=== PATIENT | female | born 1950 | race Caucasian/White ===

== ENCOUNTER → 2016-06-28 | Outpatient (CLI) | payer OTHER | LOC: BMCIMAGING 14:39 | PROVIDERS: ATTEND Internal Medicine Rheumatology | DX: M85.80 Other specified disorders of bone density and structure, unspecified site (principal) ==

== ENCOUNTER → 2017-01-21 | Outpatient (CLI) | payer OTHER | LOC: BRMIMAGING 13:55 | PROVIDERS: ATTEND Internal Medicine Hematology & Oncology | DX: Z12.31 Encounter for screening mammogram for malignant neoplasm of breast (principal); Z85.3 Personal history of malignant neoplasm of breast | CPT/HCPCS: G0202 ==

== ENCOUNTER → 2017-06-01 | Outpatient (CLI) | payer OTHER | LOC: FIMAGING 09:48 | PROVIDERS: ATTEND Physical Medicine & Rehabilitation | DX: E21.3 Hyperparathyroidism, unspecified (principal); E04.1 Nontoxic single thyroid nodule ==

== ENCOUNTER 2018-02-10 08:00 | Inpatient (IN) | payer OTHER ==
[2018-05-17] MEDS ORDERED: ROPIVACAINE 0.2% 80 MG, EPINEPHrine 0.2 MG, KETOROLAC TROMETHAMINE 30 MG in SYRINGE 0 ML IU ONE (06:00)
[2018-05-17] MEDS ORDERED: TRANEXAMIC ACID 3,000 MG in NS (SYRINGE) 50 ML IRR ONE (06:00)
--- NOTE | 2018-05-17 07:05 | PDHPUP ---
History & Physical Update H&P update statement: This history and physical update is based on an assessment of the patient which was completed after admission or registration (within 24 hours), but prior to the surgery/procedure. H&P update: H&P reviewed & patient examined, no change in patient's condition since H&P completed
[2018-05-17] MEDS ORDERED: TRANEXAMIC ACID 3,000 MG/50 ML BAG IRR ONE (07:32)
[2018-05-17] MEDS ORDERED: ceFAZolin 2 GM/DEXTROSE 100 ML IV ONE (08:17)
[2018-05-17] MEDS ORDERED: DEXAMETHASONE 4 MG/ML VIAL IVP ONE (08:17)
[2018-05-17] MEDS ORDERED: LR 1,000 ML IV ONE (08:17)
[2018-05-17] MEDS ORDERED: ACETAMINOPHEN 325 MG TAB PO ONE (08:17)
[2018-05-17] MEDS ORDERED: FAMOTIDINE 20 MG TAB PO ONE (08:17)
[2018-05-17] MEDS ORDERED: MIDAZOLAM 2 MG/2 ML VIAL IVP ONE (08:22)
--- NOTE | 2018-05-17 08:22 | PDANEPAE ---
ANE History of Present Illness hip DJD, chronic OA, here for LTHA ANE Past Medical History - Cardiovascular History Hx Hypertension: No Hx Arrhythmias: No Hx Chest Pain: No Hx Coronary Artery / Peripheral Vascular Disease: No Hx CHF / Valvular Disease: No Hx Palpitations: No - Pulmonary History Hx COPD: No Hx Asthma/Reactive Airway Disease: Yes Hx Recent Upper Respiratory Infection: No Hx Oxygen in Use at Home: No Hx Sleep Apnea: No Sleep Apnea Screening Result - Last Documented: Negative Pulmonary History Comment: ASTHMA. SARCOIDOSIS WITH GRANULOMAS IN REMISSION - Neurologic History Hx Cerebrovascular Accident: No Hx Seizures: No Hx Dementia: No - Endocrine History Hx Diabetes: No - Renal History Hx Renal Disorders: No - Liver History Hx Hepatic Disorders: No - Neurological & Psychiatric Hx Hx Neurological and Psychiatric Disorders: No - Cancer History Hx Cancer: Yes Cancer History Comment: BREAST CANCER - Congenital Disorder History Hx Congenital Disorders: No - GI History Hx Gastrointestinal Disorders: Yes Gastrointestinal History Comment: ACID REFLUX - Other Health History Other Health History: ALLERGIC RHINITIS - Chronic Pain History Chronic Pain: Yes (LOWER BACK,LEFT KNEE) - Surgical History Prior Surgeries: ABD SURGERY X2. SHOULDER SX 2018 ANE Review of Systems Review of Systems: - Exercise capacity METS (RN): 4 METS ANE Patient History - Allergies Allergies/Adverse Reactions: morphine Allergy (Verified 05/01/18 11:21) Itching - Home Medications Home Medications: Azelastine [Astelin Nasal [place] (RX)] 1 sprays EACHNARE BID PRN 05/01/18 [Last Taken Unknown] Cholecalciferol Vit D3 [Vitamin D3 (*)] 5,000 units PO DAILY 05/01/18 [Last Taken Unknown] Dicyclomine [Bentyl 20 MG (*)] 20 mg PO TID 05/01/18 [Last Taken Unknown] Diphenoxylate HCl/Atrop Sulf [Lomotil Tab (*)] 1 tab PO DAILY PRN 05/01/18 [ Last Taken Unknown] Ferrous Sulfate [Ferrous Sulf 325 MG (*)] 325 mg PO DAILY 05/01/18 [Last Taken Unknown] Herbals/Supplements -Info Only 1 ea PO DAILY 05/01/18 [Last Taken Unknown] Levalbuterol Inhaler [Xopenex Hfa Inhaler (*)] 1 puffs IH TID 05/01/18 [Last Taken Unknown] Memantine HCl 10 mg PO BID 05/01/18 [Last Taken Unknown] Mesalamine [Asacol HD 800 mg] 800 mg PO TID 05/01/18 [Last Taken Unknown] Mometasone Furoate Nasal [Nasonex] 1 sprays NASAL DAILY PRN 05/01/18 [Last Taken Unknown] Omeprazole 40 mg PO DAILY 05/01/18 [Last Taken Unknown] Tiotropium Inhaler [Spiriva Inhaler] 1 inh IH DAILY 05/01/18 [Last Taken Unknown ] traMADol [Ultram 50 mg (*)] 100 mg PO TID 05/01/18 [Last Taken Unknown] - Smoking Hx Smoking Status: Former smoker - Family Anes Hx Family Hx Anesthesia Complications: NONE ANE Labs/Vital Signs - Vital Signs Height: 167.64 cm Weight: 58.06 kg ANE Physical Exam - Airway Neck exam: FROM Mallampati Score: Class 2 Mouth exam: normal dental/mouth exam - Pulmonary Pulmonary: no respiratory distress, no rales or rhonchi - Cardiovascular Cardiovascular: regular rate and rhythym, no murmur, rub, or gallop - ASA Status ASA Status: III ANE Anesthesia Plan Anesthesia Plan: GA with mask, spinal Total IV Anesthesia: Yes
[2018-05-17] MEDS ORDERED: LIDOCAINE 1% 2 ML INJ ONE (08:25)
[2018-05-17] MEDS ORDERED: fentaNYL 100 MCG/2 ML INJ ONE (08:27)
[2018-05-17] MEDS ORDERED: ONDANSETRON 4 MG/2 ML VIAL ONE (08:27)
[2018-05-17] MEDS ORDERED: LIDOCAINE 2% 100 MG/5 ML SYR ONE (08:27)
[2018-05-17] MEDS ORDERED: BUPIVACAINE/DEXTROSE 7.5MG/ML 2 ML SPINAL AMP SP ONE (08:27)
[2018-05-17] MEDS ORDERED: PHENYLEPHRINE HCL 100 MCG/ML SYR ONE (08:27)
[2018-05-17] MEDS ORDERED: LIDOCAINE 1% 2 ML INJ ID PRN (08:28)
[2018-05-17] MEDS ORDERED: BUPIVACAINE 0.5% 30 ML SDV ONE (09:02)
[2018-05-17] MEDS ORDERED: PROPOFOL 200 MG/20 ML VIAL ONE (10:06)
[2018-05-17] MEDS ORDERED: NALOXONE HCL 0.4 MG/ML INJ IVP PRN (10:31)
[2018-05-17] MEDS ORDERED: fentaNYL 100 MCG/2 ML INJ IVP PRN (10:31)
[2018-05-17] MEDS ORDERED: DIAZEPAM 5 MG/ML 1 ML SYR IVP PRN (10:31)
[2018-05-17] MEDS ORDERED: PROMETHAZINE HCL 25 MG/ML INJ IVP PRN ×2 (10:31→10:37)
[2018-05-17] MEDS ORDERED: MEPERIDINE 25 MG/0.5 ML AMP IVP PRN (10:31)
[2018-05-17] MEDS ORDERED: LR 500 ML IV PRN (10:31)
[2018-05-17] MEDS ORDERED: oxyCODONE IR 5 MG TAB PO PRN ×2 (10:31→10:37)
[2018-05-17] MEDS ORDERED: HYDROmorphONE/DILAUDID 2 MG/ML INJ IVP PRN (10:31)
[2018-05-17] MEDS ORDERED: ACETAMINOPHEN 500 MG TAB PO PRN (10:31)
[2018-05-17] MEDS ORDERED: ONDANSETRON 4 MG/2 ML VIAL IVP PRN ×2 (10:31→10:37)
[2018-05-17] MEDS ORDERED: PROMETHAZINE HCL 25 MG SUPPR PR PRN (10:37)
[2018-05-17] MEDS ORDERED: POLYETHYLENE GLYCOL 3350 17 GM PKT PO PRN (10:37)
[2018-05-17] MEDS ORDERED: DIPHENOXYLATE/ATROPINE LOMOTIL 1 TAB PO PRN (10:37)
[2018-05-17] MEDS ORDERED: MAGNESIUM HYDROXIDE 30 ML UDCUP PO PRN (10:37)
[2018-05-17] MEDS ORDERED: METOCLOPRAMIDE 10 MG/2 ML VIAL IVP PRN (10:37)
[2018-05-17] MEDS ORDERED: ONDANSETRON DISINTEGRATING 4 MG TAB PO PRN (10:37)
[2018-05-17] MEDS ORDERED: CYCLOBENZAPRINE 10 MG TAB PO PRN (10:37)
[2018-05-17] MEDS ORDERED: diphenhydrAMINE 25 MG CAP PO PRN (10:37)
[2018-05-17] MEDS ORDERED: TEMAZEPAM 15 MG CAP PO PRN (10:37)
[2018-05-17] MEDS ORDERED: LACTULOSE 20 GM/30 ML UDCUP PO PRN (10:37)
[2018-05-17] MEDS ORDERED: BISACODYL 10 MG SUPP PR PRN (10:37)
--- NOTE | 2018-05-17 10:37 | POSTOPPROG ---
Post Op Note Date of Operation: 05/17/18 Surgeon: Kenia Pitts Felt Hat Pouncing Operator Hand: zulma pitts PA-C and Montse Mendiola PA-C Anesthesiologist: dr. ferreira Anesthesia: Spinal Pre-op Diagnosis: left hip OA Post-op Diagnosis: same Indication: left hip pain Procedure: L JESSICA ant approach Findings: severe hip OA Inf/Abcess present in the surg proc area at time of surgery?: No EBL: 100-500
[2018-05-17] MEDS ORDERED: MOMETASONE FUROATE NASAL PRN (10:40)
--- NOTE | 2018-05-17 10:43 | POSTANESTH ---
Post Anesthetic Evaluation Cardiovascular Status: Normal, Stable Respiratory Status: Normal, Stable Level of Consciousness/Mental Status: Can Participate in Eval, Alert and Oriented Pain Control: Adequate, Prn Tx Ordered Nausea/Vomiting Control: Adequate, Prn Tx Ordered Complications Possibly Related to Anesthesia: None Noted (moving both legs on exam)
[2018-05-17] MEDS ORDERED: LR 1,000 ML IV SCH (11:00)
[2018-05-17] MEDS ORDERED: oxyCODONE IR 5 MG TAB ONE ×2 (14:50→16:00)
[2018-05-17] MEDS ORDERED: ACETAMINOPHEN 325 MG TAB ONE (14:51)
[2018-05-17] MEDS: ACETAMINOPHEN 325 MG TAB PO SCH ×2 (14:53→22:44)
[2018-05-17] MEDS ORDERED: AZELASTINE NASAL MDI EACHNARE PRN (17:00)
[2018-05-17] MEDS ORDERED: WARFARIN SODIUM 5 MG TAB PO SCH (17:00)
[2018-05-17] MEDS: traMADol 50 MG TAB PO SCH ×2 (18:05→22:44)
[2018-05-17] MEDS: ceFAZolin 2 GM/DEXTROSE 100 ML IV SCH (18:15)
[2018-05-17] MEDS: SENNOSIDES/DOCUSATE SODIUM TAB PO SCH (20:18)
[2018-05-17] MEDS: oxyCODONE IR 5 MG TAB PO PRN (20:18)
--- NOTE | 2018-05-17 22:07 | PDMN ---
Medical Necessity Medical necessity: Pt meets inpt criteria per MD order and [facility] S-560, Hip Arthroplasty, A-2 days, IP only list. 67 y/o w/L hip OA admitted for L JESSICA ant approach and post-op care.
[2018-05-17] MEDS: DICYCLOMINE 20 MG TAB PO SCH (22:44)
[2018-05-18] MEDS: DICYCLOMINE 20 MG TAB PO SCH (01:14)
[2018-05-18] MEDS: ceFAZolin 2 GM/DEXTROSE 100 ML IV SCH (01:22)
[2018-05-18] MEDS: ACETAMINOPHEN 325 MG TAB PO SCH ×2 (05:03→12:25)
[2018-05-18] MEDS: LEVALBUTEROL INHALER 200 PUFFS/15 GM MDI IH SCH ×2 (05:35→10:04)
[2018-05-18 05:59] LABS: INR 1.14 (0.83-1.16); PROTIME(PATIENT) 14.1 SEC (12.0-15.0)
[2018-05-18] MEDS: traMADol 50 MG TAB PO SCH (08:51)
[2018-05-18] MEDS ORDERED: TIOTROPIUM INHALER 18 MCG/DOSE 5 DOSE/MDI IH SCH (09:00)
[2018-05-18] MEDS ORDERED: FERROUS SULFATE 325 MG TAB PO SCH (09:00)
[2018-05-18] MEDS ORDERED: FAMOTIDINE 20 MG TAB PO SCH (09:00)
[2018-05-18] MEDS ORDERED: ENOXAPARIN 40 MG/0.4 ML SYR SC SCH (09:00)
[2018-05-18] MEDS: SENNOSIDES/DOCUSATE SODIUM TAB PO SCH (09:15)
--- NOTE | 2018-05-18 09:48 | SOAPPROG ---
SOAP Progress Note Assessment/Plan: Assessment: Patient is doing well POD 1 s/p L JESSICA Pain management: pain is well controlled on oral pain meds. VTE ppx: recommend coumadin and lovenox due to history of DVT, INR 1.14. cont WILLIS and SCDs Anemia: level is expected initially postop. Asymptomatic. Continue to monitor D/c planning: Patient has done better than anticipated and would like to be discharged to home today. Patient must be released from PT before discharge to home. Plan: 05/18/18 09:47 Subjective: patient is doing well today, denies SOb ,chest pain and N/V Objective: Vital Signs Temp Pulse Resp BP Pulse Ox 36.4 C 82 14 121/86 H 96 05/18/18 07:37 05/18/18 07:37 05/18/18 07:37 05/18/18 07:37 05/18/18 07:37 Laboratory Results 05/18/18 04:53 05/17/18 05/18/18 05/19/18 05:59 05:59 05:59 Intake Total 1535 Output Total 800 Balance 735 PT 14.1 SEC (12.0-15.0) 05/18/18 04:53 INR 1.14 (0.83-1.16) 05/18/18 04:53 LLE: incision dressing is clean and dry, NVI, +pf/df ICD10 Worksheet Patient Problems: Problems Problem Status Onset Primary localized osteoarthritis of left hip Acute
--- NOTE | 2018-05-18 10:03 | ASMTLACE ---
LACE Length of stay for Answers: 2 days current admission Comorbidities - select Answers: Any tumor (including all that apply lymphoma or leukemia) Opioid dependence / Chronic pain # of Emergency department Answers: 0 visits in the last 6 months Social determinants Answers: Mental health diagnosis (anxiety, depression, pers onality disorders, etc.) Score: 11 Date Signed: 05/18/2018 10:03 AM Electronically Signed By:MYRNA Verma
[2018-05-18] MEDS: oxyCODONE IR 5 MG TAB PO PRN (10:54)
--- NOTE | 2018-05-18 11:20 | GDS ---
[f rep st] DISCHARGE SUMMARY ADMISSION DIAGNOSIS: Left hip osteoarthritis. DISCHARGE DIAGNOSIS: Left hip osteoarthritis. PROCEDURE: Left total hip arthroplasty. VTE PROPHYLAXIS: Recommend Coumadin and Lovenox due to history of DVT. BRIEF DESCRIPTION OF HOSPITAL STAY: Patient was admitted for an elective joint arthroplasty. The pa soledad tolerated the procedure well and has passed physical therapy. The patient was given appropriat e antibiotic prophylaxis and venous thromboembolism prophylaxis. The patient's pain was well control led on oral pain medication, patient was holding down food, and had urinated. Decision was made to d ischarge the patient. The patient was given post-operative prescriptions pre-operatively. PLAN: Please follow up as scheduled with Dr. Porter's office in 3 weeks. /[id number]/MODL
[2018-05-18 11:51] VITALS: BP 110/73
--- NOTE | 2018-05-21 14:16 | GOP ---
[f rep st] OPERATIVE REPORT DATE OF OPERATION: 05/17/2018 SURGEON: Vlad Porter MD CONTRACT FORESTER: 1. Ilene Porter PA-C. 2. Montse Mendiola PA-C. PREOPERATIVE DIAGNOSIS: Left osteoarthritis. POSTOPERATIVE DIAGNOSIS: Left osteoarthritis. PROCEDURE PERFORMED: Left total hip arthroplasty with x-ray. FINDINGS: ESTIMATED BLOOD LOSS: 200 mL. INDICATIONS: The patient has progressively worsening arthritis of the hip which has failed medical m anagement. The patient understands the treatment options including continued non-operative care and has selected surgical intervention. The patient has decided to undergo total hip arthroplasty via th e direct anterior approach, understanding the risks of the procedure including, but not limited to, n eurovascular injury, infection, persistent pain, component wear and loosening, deep venous thrombosis , pulmonary embolism, limb length inequality, hip instability (including dislocation), and intra-oper ative fractures. DESCRIPTION OF PROCEDURE: After proper identification of the patient including verification and margret ing the surgical site, the patient was brought to the operating room and placed in the supine positio n. All bony prominences were well padded. Anesthesia was induced without complication and intraveno us prophylactic antibiotics were administered prior to skin incision. The operative leg was placed in the Trumpf Arch table extension and the well leg in a [place]in leg ho lder. The patient was prepped and draped in the usual sterile fashion. The C-arm was draped for int ra-operative fluoroscopy to check acetabular position, femoral component position including leg lengt h and femoral offset. Attention was then drawn to surgical exposure of the hip. An incision was made with a #10 [place] r blade starting 3 cm lateral and 3 cm distal to the anterior superior iliac spine measuring 8-10 cm and coursing distally toward the greater trochanter. The skin and subcutaneous tissues were divided sharply down to the fascia carli. The fascia carli was incised in line with the skin incision exposing the underlying tensor fascia carli muscle. The muscle was bluntly elevated from the fascia and the f irst extracapsular Cobra retractor was placed laterally at the junction of the superior femoral neck and greater trochanter. The lateral femoral circumflex vessels were identified, cauterized, and divi ded with the Aquamantys bipolar cautery. The deep investing fascia of the TFL was divided to allow p tammy mobilization of the muscle preventing damage during the retraction. The reflected head of the rectus femoris muscle was elevated off the anterior hip capsule and a medial Cobra retractor was plac ed just proximal to the lesser trochanter. The anterior capsulotomy was made sharply from the superolateral acetabulum to the saddle junction of the superior femoral neck and greater trochanter, then coursing inferomedial towards the lesser troc hanter. The retractors were then placed in the intracapsular position for femoral neck osteotomy. C orresponding to pre-operative templating, the osteotomy was made with the oscillating saw carefully p rotecting the greater trochanter and soft tissues. The femoral head was removed from the acetabulum with a corkscrew and confirmed to be severely arthritic with exposed bone, deformity and osteophytes. Similar findings were confirmed in the acetabulum. The Arch table extension was then placed in 40 degrees external rotation. Attention was then drawn to the acetabular preparation. After placement of the anterior and posterio r Cobra retractors outside the labrum and intracapsular, the circumferential labrum was removed sharp ly. The foveal contents were then removed and hemostasis obtained with cautery. The first reamer selected was sized using the removed femoral head. Reaming began with medialization and then commenced in 2 mm increments at 45 degrees of abduction and 15 degrees of anteversion using fluoroscopic navigation. Reaming ceased 1 mm less than the definitive acetabular component and jerzy esponded to the pre-operative templating. The final acetabular component was inserted using fluorosc opy to achieve proper orientation yielding excellent purchase and stability in the acetabulum. The f inal acetabular liner was then placed and its seating confirmed. Attention was then turned to the femur. The Arch table extension was placed in extension and adducti on, delivering the osteotomized femoral neck into the wound. A 2-pronged femoral elevator was placed at the calcar and another at the tip of the greater trochanter. The posterolateral capsule was rele ased with cautery allowing mobilization of the femur lateral and anterior for preparation. The exter nal rotators were visualized and preserved. A curette and rongeur were used to open the starting poi nt for broaching. Serial broaching started with the #0 broach and ended with the broach that exhibit ed excellent fit in the proximal femur. A change in pitch during mallet strikes was accompanied by t he inability to advance the broach any further. The trial reduction was performed and fluoroscopic n avigation was utilized to check limb length. Adjustments were made to equalize limb length according ly. After the final trials were accepted they were removed and the wound was copiously lavaged. The femo ral component was seated to the same depth as the final broach and the femoral head was impacted onto the clean trunnion. The hip was then reduced for the final time and once more fluoroscopy was used to check that limb length equality was achieved. The wound was irrigated and closed in layers, the fascia carli with 2-0 Quill, the subcutaneous tissue with 2-0 Quill, and the skin with Dermabond. Sterile dressings were applied. Final sharps and spon ge counts were accurate. The patient was then transferred to a hospital bed and brought to the [facility] room in stable condition. IMPLANTS: Accolade II size 5 at 127. Acetabular component is a Trident II 50 mm. Liner is a Triden t X3 thirty two mm head with a Biolox Delta 36 mm -4. /[id number]/MODL
== END 2018-05-18 13:04 | disposition home or self-care (01) | DRG 470 ==
LOC: F3N 05-17 07:50
PROVIDERS: ADMIT Orthopaedic Surgery; ATTEND Orthopaedic Surgery
PROC: 0SRB04A Replacement of Left Hip Joint with Ceramic on Polyethylene Synthetic Substitute, Uncemented, Open Approach (ICD-10-PCS; principal; 2018-05-17 10:00)
DX: M16.12 Unilateral primary osteoarthritis, left hip (principal); J45.909 Unspecified asthma, uncomplicated; Z85.3 Personal history of malignant neoplasm of breast; K21.9 Gastro-esophageal reflux disease without esophagitis; G89.29 Other chronic pain; Z87.891 Personal history of nicotine dependence
CPT/HCPCS: 97116-GP; 97161-GP; J0171; J0690; J1100; J1650; J1885; J2001; J2250; J2370; J2405; J2704; J2795; J3010